=== PATIENT | male | born 1990 | race Asian ===

== ENCOUNTER 2023-03-27 18:44 | Emergency (ER) | payer BC ==
[2023-03-27] MEDS ORDERED: Sodium Chloride 0.9% 10 ML Syringe FLUSH PRN (19:29)
[2023-03-27] MEDS ORDERED: Meclizine 12.5 MG Tab PO ONE (19:29)
[2023-03-27] MEDS ORDERED: Sodium Chloride 0.9% 1,000 ML IV ONE (19:32)
[2023-03-27] MEDS ORDERED: Diltiazem 180 MG Cap.CD PO ONE (19:33)
[2023-03-27 20:18] LABS: BILIRUBIN TOTAL 0.7 mg/dL (0.2-1.0); BUN/CREATININE RATIO 9.2 (No establ ref range); CALCIUM 9.9 mg/dL (8.5-10.1); CREATININE 1.2 mg/dL (0.70-1.30); EST CRCL DRUG DOSING (CG) 109.5 mL/min; PROTEIN TOTAL,TP 7.9 g/dL (6.4-8.2)
== END 2023-03-27 21:55 | disposition home or self-care (01) ==
LOC: DL.ED 18:44
DX: R55 Syncope and collapse (principal); I10 Essential (primary) hypertension; Z88.0 Allergy status to penicillin
CPT/HCPCS: 36415; 80053; 93005; 96360; 99284; A9270; J7030; J3490